=== PATIENT | male | born 1950 | race Caucasian/White ===

== ENCOUNTER 2018-08-13 08:59 | Emergency (ER) | payer SELFPAY ==
[~2018-08-13] VITALS: Ht 165.1 cm; Wt 84.0 kg
[2018-08-13] MEDS ORDERED: IBUPROFEN 600MG TABLET PO STA (10:25)
[2018-08-13 10:58] LABS: HEMATOCRIT. 51.1 % (42.0-52.0); HEMOGLOBIN. 17.2 g/dL (14.0-18.0); MEAN CORPUSCULAR HEMOGLOBIN 27.9 pg (28.0-32.0); MEAN PLATELET VOLUME 7.8 fl (7.4-10.4); PLATELET 213 x1000/uL (130-400); RED BLOOD CELL COUNT 6.16 mill/uL (4.7-6.1); RED CELL DISTRIBUTION WIDTH 13.8 % (11.6-14.6)
[2018-08-13 11:11] LABS: CHLORIDE 106 mEq/L (98-107)
[2018-08-13 11:16] LABS: C REACTIVE PROTEIN QUANT 2.7 mg/L (0.0-3.0)
[2018-08-13 11:37] LABS: PLATELET ESTIMATE NORMAL
[2018-08-13 12:38] VITALS: BP 160/71
== END 2018-08-13 12:49 | disposition home or self-care (01) ==
LOC: ER 08:59
DX: R51 Headache (principal)
CPT/HCPCS: 36415; 85651; 86140; 99283